=== PATIENT | male | born 1980 | race Two or more races ===

== ENCOUNTER 2018-12-02 19:10 | Emergency (ER) | payer MEDICAID ==
[~2018-12-02] VITALS: Ht 167.6 cm; Wt 74.9 kg
[2018-12-02 19:15] VITALS: BP 130/56; PULSE 88; RESP 16; Ht 167.6 cm; Wt 74.9 kg
[2018-12-02] MEDS ORDERED: CEPH-443 PO (20:52)
[2018-12-02] MEDS ORDERED: DIPH25CA6 PO (20:52)
--- NOTE | 2018-12-02 20:55 | ERD ---
ER Documentation Chief Complaint Chief Complaint pt reports a bite to R bicep, c/o burning pain HPI 38-year-old male presents with some redness and a bump on his right biceps area. He possibly felt an insect bite yesterday. Denies any fevers, vomiting, shortness of breath or chest pain. He describes a burning pain with some irritation possibly mild itching but not significant.. ROS All systems reviewed and are negative except as per history of present illness. Medications Home Meds Active Scripts Diphenhydramine Hcl (Benadryl) 25 Mg Cap, 25 MG PO QID for 5 Days, #15 CAP Prov:GLENN CALDERON MD 12/02/18 Cephalexin* (Keflex*) 500 Mg Capsule, 500 MG PO QID for 7 Days, CAP Prov:GLENN CALDERON MD 12/02/18 Allergies Allergies: Coded Allergies: No Known Drug Allergies (Verified Allergy, 01/19/11) PMhx/Soc Medical and Surgical Hx: pt denies Medical Hx, pt denies Surgical Hx History of Surgery: No Anesthesia Reaction: No Hx Neurological Disorder: No Hx Respiratory Disorders: No Hx Cardiac Disorders: No Hx Psychiatric Problems: No Hx Miscellaneous Medical Probl: No Hx Alcohol Use: No Hx Substance Use: No Hx Tobacco Use: No Smoking Status: Never smoker FmHx Family History: No diabetes, No coronary disease, No other Physical Exam Vitals Vital Signs Date Temp Pulse Resp B/P (MAP) Pulse Ox O2 O2 Flow FiO2 Time Delivery Rate 12/02/18 98.4 88 16 130/56 98 19:15 (80) Physical Exam Const: No acute distress Head: Atraumatic Eyes: Normal Conjunctiva ENT: Normal External Ears, Nose and Mouth. Neck: Full range of motion. No meningismus. Resp: Clear to auscultation bilaterally Cardio: Regular rate and rhythm, no murmurs Abd: Soft, non tender, non distended. Normal bowel sounds Skin: No petechiae or rashes Back: No midline or flank tenderness Ext: No cyanosis, or edema. Right upper extremity with erythema approximately 6 to 8 cm. There is a central papule without induration, streaking, discharge, fluctuance. Neur: Awake and alert Psych: Normal Mood and Affect Results 24 hrs Current Medications Medications Dose Sig/Christa Start Time Status Last (Trade) Ordered Route PRN Stop Time Admin Dose Reason Admin Ceftriaxone 1 gm ONCE ONCE 12/02/18 Sodium IM 21:00 (Rocephin) 12/02/18 21:01 25 mg ONCE ONCE 12/02/18 Diphenhydrami PO 21:00 ne HCl 12/02/18 21:01 (Benadryl) 16 mg ONCE ONCE 12/02/18 Dexamethasone PO 21:00 (Decadron) 12/02/18 21:01 Procedures/MDM Patient presents with signs and symptoms of insect bite on the right upper extremity with signs of local reaction versus early infection. Patient has no signs of abscess, anaphylaxis, ischemia, sepsis, life-threatening rashes or purpura. He will be treated with Rocephin 1 g IM, Benadryl, Decadron 16 mg by mouth, continuation of Keflex, Benadryl, recommendations for 2-day recheck, primary care follow-up and return precautions for worsening redness, fevers, new or worsening symptoms. The patient was stable with no new complaints during the ER course. Clinically, there is no current evidence to suggest meningitis, sepsis, acute abdomen, pneumonia, stroke, acute coronary syndrome, pulmonary embolism, aortic dissection or any other emergent condition appearing to require further evaluation or hospitalization. Patient counseled regarding my diagnostic impression and care plan. Prior to discharge all questions answered. Pt agrees with treatment plan and understands strict return precautions. Pt is instructed to follow up with primary care provider within 24-48 hours. Precautionary instructions provided including instructions to return to the ER if not improving or for any worsening or changing symptoms or concerns. Disclaimer: Inadvertent spelling and grammatical errors are likely due to EHR/dictation software use and do not reflect on the overall quality of patient care. Also, please note that the electronic time recorded on this note does not necessarily reflect the actual time of the patient encounter. Departure Diagnosis: Primary Impression: Insect bite Encounter type: initial encounter Site of insect bite: unspecified site Qualified Codes: W57.XXXA - Bitten or stung by nonvenomous insect and other nonvenomous arthropods, initial encounter Additional Impression: Infected bite wound Condition: Stable Patient Instructions: Insect Sting/Bite, Infected Additional Instructions: Recheck in 2 days for worsening redness, fevers, new worsening symptoms. GLENN CALDERON MD Dec 02, 2018 20:55
[2018-12-02] MEDS ORDERED: CEFTRIAXONE 1 GM INJ IM ONE (21:00)
[2018-12-02] MEDS ORDERED: DIPHENHYDRAMINE 25 MG CAP PO ONE (21:00)
[2018-12-02] MEDS ORDERED: DEXAMETHASONE 4 MG TAB PO ONE (21:00)
== END 2018-12-02 22:52 | disposition home or self-care (01) ==
LOC: FTE 19:10
DX: S40.861A Insect bite (nonvenomous) of right upper arm, initial encounter (principal); W57.XXXA Bitten or stung by nonvenomous insect and other nonvenomous arthropods, initial encounter; Y92.9 Unspecified place or not applicable
CPT/HCPCS: 96372; J0696; Z7502; Z7610